=== PATIENT | female | born 1970 | race Caucasian/White ===

== ENCOUNTER 2021-12-16 05:11 | Emergency (ER) | payer SELFPAY ==
[~2021-12-16] VITALS: Ht 157.5 cm; Wt 59.0 kg
[2021-12-16] MEDS ORDERED: LEXAPRO5 MG PO (05:27)
== END 2021-12-16 07:05 | disposition home or self-care (01) ==
LOC: ED 05:11 → EDBD 05:11 → ED 07:05
DX: R51.9 Headache, unspecified (principal); R25.2 Cramp and spasm; Z85.3 Personal history of malignant neoplasm of breast; E78.00 Pure hypercholesterolemia, unspecified; Z88.2 Allergy status to sulfonamides; Z79.899 Other long term (current) drug therapy
CPT/HCPCS: 36415; 70450; 80053; 85025; 96374; 99285-25; A9270; G0480; J1885